=== PATIENT | male | born 1950 | race Caucasian/White ===

== ENCOUNTER → 2018-05-17 | Outpatient (CLI) | payer MEDICARE, OTHER | LOC: M RAD 08:18 | DX: J34.2 Deviated nasal septum (principal); J32.2 Chronic ethmoidal sinusitis; J32.1 Chronic frontal sinusitis | CPT/HCPCS: 70486 ==

== ENCOUNTER → 2022-02-26 | Outpatient (CLI) | payer MEDICARE, OTHER ==
[~2022-02-26] MED LIST: AMBI10TA OR; ATEN50TA2 OR; Aleve PO; CALC500T49 OR; CRES10TA32 OR; FOLI1TAB OR; GABA800T3 OR; ISOVUE-300 61% 50ML VIAL As Ordered ONE; LIDOCAINE 1% MDV 20ML VIAL As Ordered ONE; NORT50CA OR; TRIAMCINOLONE ACETONIDE SUSP 40 MG/ML VIAL (J3301) As Ordered ONE; VIT D 2000 PO; VITAMIN B COMPLEX WI OR; Vitamin D3 PO; oxycontin PO
== END ==
LOC: M RADPRO 11:24
PROVIDERS: ATTEND Orthopaedic Surgery
DX: M16.12 Unilateral primary osteoarthritis, left hip (principal)
CPT/HCPCS: 20610; 77002; J3301; Q9967

== ENCOUNTER 2022-04-26 11:59 | Inpatient (IN) | payer MEDICARE, OTHER ==
[~2022-04-26] VITALS: Ht 167.6 cm; Wt 78.0 kg
[~2022-04-26 11:59] MED LIST changes: -ISOVUE-300 61% 50ML VIAL As Ordered ONE; -LIDOCAINE 1% MDV 20ML VIAL As Ordered ONE; -TRIAMCINOLONE ACETONIDE SUSP 40 MG/ML VIAL (J3301) As Ordered ONE
[2022-04-26] MEDS ORDERED: GABAPENTIN 300 MG CAP PO PRN (13:00)
[2022-04-26] MEDS ORDERED: RAMELTEON 8 MG TAB (ROZEREM) PO PRN (13:00)
[2022-04-26] MEDS ORDERED: ONDANSETRON 4MG ORAL DISINTEGRATING TAB SL PRN (13:05)
[2022-04-26 18:00] VITALS: BP 164/89
[2022-04-26 20:00] VITALS: BP 148/88
[2022-04-26] MEDS ORDERED: MIRA3350 PO (20:40)
[2022-04-26] MEDS ORDERED: FLUO20CA22 PO (20:40)
[2022-04-26] MEDS ORDERED: LOSA50TA28 PO (20:40)
[2022-04-26] MEDS ORDERED: SENN-52 PO (20:40)
[2022-04-26] MEDS ORDERED: METO1TAB7 PO (20:40)
[2022-04-26] MEDS ORDERED: BISA10SU27 PR (20:40)
[2022-04-26] MEDS ORDERED: ASPI-428 PO (20:40)
[2022-04-26] MEDS ORDERED: LOVE1INJ SC (20:40)
[2022-04-26] MEDS ORDERED: ATOR40TA75 PO (20:40)
[2022-04-26] MEDS ORDERED: GABA-282 PO (20:40)
[2022-04-26] MEDS ORDERED: TRAZ-252 PO (20:40)
[2022-04-26] MEDS ORDERED: MELA3TAB30 PO (20:40)
[2022-04-26] MEDS ORDERED: ACET-910 PO (20:40)
[2022-04-26] MEDS ORDERED: ONDA4INJ4 IV (20:40)
[2022-04-26] MEDS ORDERED: HOME MED LIST COMPLETE! XX SCH (20:45)
[2022-04-26] MEDS ORDERED: traZODone 25MG PER 1/2 TABLET PO SCH (21:00)
[2022-04-26] MEDS: REMEDY PHYTOPLEX Z-GUARD PASTE 113GM TUBE (FROM STOREROOM PRODUCT) TOP SCH (21:50)
[2022-04-26] MEDS: SENNA 8.6 MG TAB (SENOKOT) PO SCH (21:54)
[2022-04-26] MEDS: DOCUSATE SODIUM 100MG CAPSULE PO SCH (21:54)
[2022-04-26] MEDS: ATORVASTATIN 20 MG TAB PO SCH (21:55)
[2022-04-26] MEDS: MECLIZINE 12.5 MG TAB PO SCH (23:11)
[2022-04-27 06:00] VITALS: BP 140/86
[2022-04-27] MEDS ORDERED: UNRESOLVED CLARIFICATION ENTRY XX SCH (07:00)
[2022-04-27 07:05] LABS: BASO # 0.1 10^3/uL (0.0-0.2); BASO % 1.1 % (0.0-1.0); EOS # 0.2 10^3/uL (0.0-0.5); EOS % 2.3 % (0.0-3.0); HEMATOCRIT 40.4 % (42.0-52.0); HEMOGLOBIN 13.7 g/dl (13.5-17.5); LYMPH # 2.3 10^3/uL (1.5-5.0); LYMPH % 31.5 % (24.0-44.0); MEAN CORPUSCULAR HEMOGLOBIN 30.5 pg (27.0-33.0); MEAN CORPUSCULAR HGB CONC 33.9 g/dl (32.0-36.5); MONO # 0.9 10^3/uL (0.0-0.8); MONO % 12.1 % (2.0-8.0); NEUTROPHILS # 3.8 10^3/uL (1.5-8.5); NEUTROPHILS % 52.2 % (36.0-66.0); PLATELET COUNT, AUTOMATED 247 10^3/uL (150-450); RED BLOOD COUNT 4.49 10^6/uL (4.30-6.10); WHITE BLOOD COUNT 7.3 10^3/uL (4.0-10.0)
[2022-04-27 07:41] LABS: ALBUMIN 3.2 GM/DL (3.2-5.2); ALT/SGPT 32 U/L (12-78); BILIRUBIN,TOTAL 0.7 MG/DL (0.2-1.0); BLOOD UREA NITROGEN 11 MG/DL (7-18); CALCIUM LEVEL 8.9 MG/DL (8.8-10.2); CARBON DIOXIDE LEVEL 28 MEQ/L (21-32); CHLORIDE LEVEL 110 MEQ/L (98-107); CREATININE FOR GFR 0.92 MG/DL (0.70-1.30); GLOMERULAR FILTRATION RATE > 60.0 (>42); GLUCOSE, FASTING 89 MG/DL (70-100); POTASSIUM SERUM 3.9 MEQ/L (3.5-5.1); SODIUM LEVEL 144 MEQ/L (136-145); TOTAL PROTEIN 5.9 GM/DL (6.4-8.2)
[2022-04-27] MEDS: MECLIZINE 12.5 MG TAB PO SCH ×3 (08:25→22:30)
[2022-04-27] MEDS: FLUoxetine 20MG CAP PO SCH (08:25)
[2022-04-27] MEDS: DOCUSATE SODIUM 100MG CAPSULE PO SCH ×2 (08:26→22:30)
[2022-04-27] MEDS: PANTOPRAZOLE 40MG TAB (PROTONIX) PO SCH (08:26)
[2022-04-27] MEDS: ASPIRIN ENTERIC 325 MG TAB PO SCH (08:26)
[2022-04-27] MEDS: LOSARTAN 25 MG TAB PO SCH (08:26)
[2022-04-27] MEDS: REMEDY PHYTOPLEX Z-GUARD PASTE 113GM TUBE (FROM STOREROOM PRODUCT) TOP SCH ×3 (08:27→21:00)
[2022-04-27] MEDS: METOPROLOL SUCC (TopROL XL) 50MG **XL** TAB PO SCH (08:27)
[2022-04-27] MEDS: HEPARIN SOD (PORCINE) 5000UNITS/ML 1ML VIAL/SYRINGE SC SCH ×2 (08:27→22:31)
[2022-04-27] MEDS: **hydrALAZINE HCL** 25 MG TAB PO SCH ×4 (10:04→22:30)
[2022-04-27] MEDS: amLODIPine 5 MG TAB PO SCH (10:04)
[2022-04-27 14:00] VITALS: BP 134/82
[2022-04-27 19:48] VITALS: BP 140/80
[2022-04-27] MEDS: RAMELTEON 8 MG TAB (ROZEREM) PO SCH (22:29)
[2022-04-27] MEDS: SENNA 8.6 MG TAB (SENOKOT) PO SCH (22:29)
[2022-04-27] MEDS: ATORVASTATIN 20 MG TAB PO SCH (22:30)
[2022-04-28] MEDS ORDERED: traZODone 25MG PER 1/2 TABLET PO PRN
[2022-04-28 05:02] VITALS: BP 140/88
[2022-04-28] MEDS: HEPARIN SOD (PORCINE) 5000UNITS/ML 1ML VIAL/SYRINGE SC SCH ×2 (08:41→21:33)
[2022-04-28] MEDS: METOPROLOL SUCC (TopROL XL) 50MG **XL** TAB PO SCH (08:42)
[2022-04-28] MEDS: ASPIRIN ENTERIC 325 MG TAB PO SCH (08:42)
[2022-04-28] MEDS: MECLIZINE 12.5 MG TAB PO SCH ×3 (08:42→21:32)
[2022-04-28] MEDS: FLUoxetine 20MG CAP PO SCH (08:42)
[2022-04-28] MEDS: amLODIPine 5 MG TAB PO SCH (08:42)
[2022-04-28] MEDS: PANTOPRAZOLE 40MG TAB (PROTONIX) PO SCH (08:42)
[2022-04-28] MEDS: DOCUSATE SODIUM 100MG CAPSULE PO SCH ×2 (08:42→21:00)
[2022-04-28] MEDS: LOSARTAN 25 MG TAB PO SCH (08:43)
[2022-04-28] MEDS: REMEDY PHYTOPLEX Z-GUARD PASTE 113GM TUBE (FROM STOREROOM PRODUCT) TOP SCH ×3 (08:43→21:00)
[2022-04-28] MEDS: **hydrALAZINE HCL** 25 MG TAB PO SCH ×4 (08:43→21:32)
[2022-04-28 11:38] LABS: BASO # 0.1 10^3/uL (0.0-0.2); BASO % 0.8 % (0.0-1.0); EOS # 0.2 10^3/uL (0.0-0.5); EOS % 2.3 % (0.0-3.0); HEMATOCRIT 41.4 % (42.0-52.0); HEMOGLOBIN 14.3 g/dl (13.5-17.5); LYMPH # 1.7 10^3/uL (1.5-5.0); LYMPH % 22.3 % (24.0-44.0); MEAN CORPUSCULAR HEMOGLOBIN 31.2 pg (27.0-33.0); MEAN CORPUSCULAR HGB CONC 34.5 g/dl (32.0-36.5); MEAN CORPUSCULAR VOLUME 90.4 fl (80.0-96.0); MONO # 0.8 10^3/uL (0.0-0.8); MONO % 10.4 % (2.0-8.0); NEUTROPHILS # 4.7 10^3/uL (1.5-8.5); NEUTROPHILS % 63.1 % (36.0-66.0); PLATELET COUNT, AUTOMATED 272 10^3/uL (150-450); RED BLOOD COUNT 4.58 10^6/uL (4.30-6.10); WHITE BLOOD COUNT 7.4 10^3/uL (4.0-10.0)
[2022-04-28 12:22] LABS: BLOOD UREA NITROGEN 10 MG/DL (7-18); CALCIUM LEVEL 8.9 MG/DL (8.8-10.2); CARBON DIOXIDE LEVEL 24 MEQ/L (21-32); CHLORIDE LEVEL 109 MEQ/L (98-107); CREATININE FOR GFR 0.83 MG/DL (0.70-1.30); GLOMERULAR FILTRATION RATE > 60.0 (>42); GLUCOSE, FASTING 89 MG/DL (70-100); POTASSIUM SERUM 4.1 MEQ/L (3.5-5.1); SODIUM LEVEL 140 MEQ/L (136-145)
[2022-04-28 14:00] VITALS: BP 124/76
[2022-04-28 15:22] VITALS: BP 124/76
[2022-04-28 20:00] VITALS: BP 148/80
[2022-04-28] MEDS: SENNA 8.6 MG TAB (SENOKOT) PO SCH (21:00)
[2022-04-28] MEDS: RAMELTEON 8 MG TAB (ROZEREM) PO SCH (21:32)
[2022-04-28] MEDS: ATORVASTATIN 20 MG TAB PO SCH (21:33)
[2022-04-29 05:26] VITALS: BP 148/82
[2022-04-29] MEDS: REMEDY PHYTOPLEX Z-GUARD PASTE 113GM TUBE (FROM STOREROOM PRODUCT) TOP SCH ×3 (09:00→20:40)
[2022-04-29] MEDS: MECLIZINE 12.5 MG TAB PO SCH ×3 (09:12→20:37)
[2022-04-29] MEDS: ASPIRIN ENTERIC 325 MG TAB PO SCH (09:12)
[2022-04-29] MEDS: DOCUSATE SODIUM 100MG CAPSULE PO SCH ×2 (09:12→20:37)
[2022-04-29] MEDS: amLODIPine 5 MG TAB PO SCH (09:12)
[2022-04-29] MEDS: **hydrALAZINE HCL** 25 MG TAB PO SCH ×4 (09:13→20:37)
[2022-04-29] MEDS: FLUoxetine 20MG CAP PO SCH (09:13)
[2022-04-29] MEDS: PANTOPRAZOLE 40MG TAB (PROTONIX) PO SCH (09:13)
[2022-04-29] MEDS: LOSARTAN 25 MG TAB PO SCH (09:13)
[2022-04-29] MEDS: HEPARIN SOD (PORCINE) 5000UNITS/ML 1ML VIAL/SYRINGE SC SCH ×2 (09:14→20:38)
[2022-04-29] MEDS: METOPROLOL SUCC (TopROL XL) 50MG **XL** TAB PO SCH (09:14)
[2022-04-29 14:00] VITALS: BP 144/78
[2022-04-29] MEDS: ACETAMINOPHEN TAB 650MG DOSE (2X325MG) PO PRN ×2 (18:01→20:38)
[2022-04-29 20:34] VITALS: BP 138/86
[2022-04-29] MEDS: SENNA 8.6 MG TAB (SENOKOT) PO SCH (20:36)
[2022-04-29] MEDS: ATORVASTATIN 20 MG TAB PO SCH (20:37)
[2022-04-29] MEDS: RAMELTEON 8 MG TAB (ROZEREM) PO SCH (22:04)
[2022-04-30 06:55] VITALS: BP 148/96
[2022-04-30] MEDS: **hydrALAZINE HCL** 25 MG TAB PO SCH ×4 (08:31→21:40)
[2022-04-30] MEDS: MECLIZINE 12.5 MG TAB PO SCH ×3 (08:31→21:39)
[2022-04-30] MEDS: LOSARTAN 25 MG TAB PO SCH (08:31)
[2022-04-30] MEDS: PANTOPRAZOLE 40MG TAB (PROTONIX) PO SCH (08:32)
[2022-04-30] MEDS: ASPIRIN ENTERIC 325 MG TAB PO SCH (08:32)
[2022-04-30] MEDS: FLUoxetine 20MG CAP PO SCH (08:32)
[2022-04-30] MEDS: amLODIPine 5 MG TAB PO SCH (08:32)
[2022-04-30] MEDS: METOPROLOL SUCC (TopROL XL) 50MG **XL** TAB PO SCH (08:33)
[2022-04-30] MEDS: DOCUSATE SODIUM 100MG CAPSULE PO SCH ×2 (08:33→21:39)
[2022-04-30] MEDS: REMEDY PHYTOPLEX Z-GUARD PASTE 113GM TUBE (FROM STOREROOM PRODUCT) TOP SCH ×3 (08:34→21:00)
[2022-04-30] MEDS: HEPARIN SOD (PORCINE) 5000UNITS/ML 1ML VIAL/SYRINGE SC SCH ×2 (08:34→21:39)
[2022-04-30 09:00] VITALS: BP 128/77
[2022-04-30 11:06] LABS: BASO # 0.1 10^3/uL (0.0-0.2); BASO % 0.9 % (0.0-1.0); EOS # 0.2 10^3/uL (0.0-0.5); EOS % 2.8 % (0.0-3.0); HEMATOCRIT 41.6 % (42.0-52.0); HEMOGLOBIN 14.1 g/dl (13.5-17.5); LYMPH # 1.7 10^3/uL (1.5-5.0); LYMPH % 26.5 % (24.0-44.0); MEAN CORPUSCULAR HEMOGLOBIN 30.9 pg (27.0-33.0); MEAN CORPUSCULAR HGB CONC 33.9 g/dl (32.0-36.5); MONO # 0.9 10^3/uL (0.0-0.8); MONO % 13.1 % (2.0-8.0); NEUTROPHILS # 3.6 10^3/uL (1.5-8.5); NEUTROPHILS % 55.6 % (36.0-66.0); PLATELET COUNT, AUTOMATED 281 10^3/uL (150-450); RED BLOOD COUNT 4.57 10^6/uL (4.30-6.10); WHITE BLOOD COUNT 6.5 10^3/uL (4.0-10.0)
[2022-04-30 11:28] LABS: BLOOD UREA NITROGEN 8 MG/DL (7-18); CALCIUM LEVEL 9.2 MG/DL (8.8-10.2); CARBON DIOXIDE LEVEL 26 MEQ/L (21-32); CHLORIDE LEVEL 112 MEQ/L (98-107); GLOMERULAR FILTRATION RATE > 60.0 (>42); GLUCOSE, FASTING 101 MG/DL (70-100); SODIUM LEVEL 143 MEQ/L (136-145)
[2022-04-30 12:56] VITALS: BP 128/81
[2022-04-30 14:00] VITALS: BP 110/77
[2022-04-30 16:25] VITALS: BP 149/81
[2022-04-30 19:45] VITALS: BP 122/70
[2022-04-30] MEDS: ATORVASTATIN 20 MG TAB PO SCH (21:39)
[2022-04-30] MEDS: SENNA 8.6 MG TAB (SENOKOT) PO SCH (21:40)
[2022-04-30] MEDS: traZODone 25MG PER 1/2 TABLET PO SCH (22:03)
[2022-04-30] MEDS: RAMELTEON 8 MG TAB (ROZEREM) PO SCH (22:03)
[2022-05-01 05:49] VITALS: BP 130/80
[2022-05-01] MEDS: MECLIZINE 12.5 MG TAB PO SCH ×3 (08:18→22:15)
[2022-05-01] MEDS: DOCUSATE SODIUM 100MG CAPSULE PO SCH ×2 (08:18→22:15)
[2022-05-01] MEDS: FLUoxetine 20MG CAP PO SCH (08:18)
[2022-05-01] MEDS: LOSARTAN 25 MG TAB PO SCH (08:18)
[2022-05-01] MEDS: ASPIRIN ENTERIC 325 MG TAB PO SCH (08:18)
[2022-05-01] MEDS: PANTOPRAZOLE 40MG TAB (PROTONIX) PO SCH (08:19)
[2022-05-01] MEDS: amLODIPine 5 MG TAB PO SCH (08:19)
[2022-05-01] MEDS: **hydrALAZINE HCL** 25 MG TAB PO SCH ×4 (08:19→21:00)
[2022-05-01] MEDS: REMEDY PHYTOPLEX Z-GUARD PASTE 113GM TUBE (FROM STOREROOM PRODUCT) TOP SCH ×3 (08:19→21:00)
[2022-05-01] MEDS: HEPARIN SOD (PORCINE) 5000UNITS/ML 1ML VIAL/SYRINGE SC SCH ×2 (08:19→22:16)
[2022-05-01] MEDS: METOPROLOL SUCC (TopROL XL) 50MG **XL** TAB PO SCH (08:19)
[2022-05-01 20:11] VITALS: BP 124/84
[2022-05-01] MEDS: traZODone 25MG PER 1/2 TABLET PO SCH (22:15)
[2022-05-01] MEDS: RAMELTEON 8 MG TAB (ROZEREM) PO SCH (22:15)
[2022-05-01] MEDS: SENNA 8.6 MG TAB (SENOKOT) PO SCH (22:15)
[2022-05-01] MEDS: ATORVASTATIN 20 MG TAB PO SCH (22:16)
[2022-05-02 06:00] VITALS: BP 164/83
[2022-05-02] MEDS: REMEDY PHYTOPLEX Z-GUARD PASTE 113GM TUBE (FROM STOREROOM PRODUCT) TOP SCH ×3 (09:00→21:00)
[2022-05-02] MEDS: FLUoxetine 20MG CAP PO SCH (09:50)
[2022-05-02] MEDS: MECLIZINE 12.5 MG TAB PO SCH ×3 (09:50→21:40)
[2022-05-02] MEDS: LOSARTAN 25 MG TAB PO SCH (09:51)
[2022-05-02] MEDS: amLODIPine 5 MG TAB PO SCH (09:51)
[2022-05-02] MEDS: DOCUSATE SODIUM 100MG CAPSULE PO SCH ×2 (09:51→21:40)
[2022-05-02] MEDS: PANTOPRAZOLE 40MG TAB (PROTONIX) PO SCH (09:51)
[2022-05-02] MEDS: **hydrALAZINE HCL** 25 MG TAB PO SCH ×4 (09:51→21:40)
[2022-05-02] MEDS: ASPIRIN ENTERIC 325 MG TAB PO SCH (09:51)
[2022-05-02] MEDS: METOPROLOL SUCC (TopROL XL) 50MG **XL** TAB PO SCH (09:51)
[2022-05-02] MEDS: HEPARIN SOD (PORCINE) 5000UNITS/ML 1ML VIAL/SYRINGE SC SCH ×2 (09:52→21:40)
[2022-05-02 14:00] VITALS: BP 115/65
[2022-05-02 20:15] VITALS: BP 143/76
[2022-05-02] MEDS: ATORVASTATIN 20 MG TAB PO SCH (21:40)
[2022-05-02] MEDS: SENNA 8.6 MG TAB (SENOKOT) PO SCH (21:40)
[2022-05-02] MEDS: RAMELTEON 8 MG TAB (ROZEREM) PO SCH (22:35)
[2022-05-02] MEDS: traZODone 25MG PER 1/2 TABLET PO SCH (22:35)
[2022-05-03 06:10] VITALS: BP 126/75
[2022-05-03 06:48] LABS: BASO # 0.1 10^3/uL (0.0-0.2); EOS # 0.4 10^3/uL (0.0-0.5); EOS % 4.9 % (0.0-3.0); HEMATOCRIT 41.9 % (42.0-52.0); HEMOGLOBIN 14.2 g/dl (13.5-17.5); LYMPH % 26.9 % (24.0-44.0); MEAN CORPUSCULAR HEMOGLOBIN 31.3 pg (27.0-33.0); MEAN CORPUSCULAR HGB CONC 33.9 g/dl (32.0-36.5); MEAN CORPUSCULAR VOLUME 92.3 fl (80.0-96.0); MONO # 0.7 10^3/uL (0.0-0.8); MONO % 9.8 % (2.0-8.0); NEUTROPHILS # 4.1 10^3/uL (1.5-8.5); NEUTROPHILS % 56.3 % (36.0-66.0); PLATELET COUNT, AUTOMATED 235 10^3/uL (150-450); RED BLOOD COUNT 4.54 10^6/uL (4.30-6.10); WHITE BLOOD COUNT 7.3 10^3/uL (4.0-10.0)
[2022-05-03 07:13] LABS: BLOOD UREA NITROGEN 10 MG/DL (7-18); CALCIUM LEVEL 8.5 MG/DL (8.8-10.2); CARBON DIOXIDE LEVEL 29 MEQ/L (21-32); CHLORIDE LEVEL 108 MEQ/L (98-107); CREATININE FOR GFR 0.92 MG/DL (0.70-1.30); GLOMERULAR FILTRATION RATE > 60.0 (>42); GLUCOSE, FASTING 86 MG/DL (70-100); POTASSIUM SERUM 4.2 MEQ/L (3.5-5.1); SODIUM LEVEL 141 MEQ/L (136-145)
[2022-05-03] MEDS: MECLIZINE 12.5 MG TAB PO SCH ×3 (08:07→21:44)
[2022-05-03] MEDS: DOCUSATE SODIUM 100MG CAPSULE PO SCH ×2 (08:08→21:44)
[2022-05-03] MEDS: **hydrALAZINE HCL** 25 MG TAB PO SCH ×4 (08:08→21:00)
[2022-05-03] MEDS: LOSARTAN 25 MG TAB PO SCH (08:09)
[2022-05-03] MEDS: PANTOPRAZOLE 40MG TAB (PROTONIX) PO SCH (08:09)
[2022-05-03] MEDS: amLODIPine 5 MG TAB PO SCH (08:09)
[2022-05-03] MEDS: ASPIRIN ENTERIC 325 MG TAB PO SCH (08:09)
[2022-05-03] MEDS: FLUoxetine 20MG CAP PO SCH (08:10)
[2022-05-03] MEDS: METOPROLOL SUCC (TopROL XL) 50MG **XL** TAB PO SCH (08:10)
[2022-05-03] MEDS: HEPARIN SOD (PORCINE) 5000UNITS/ML 1ML VIAL/SYRINGE SC SCH ×2 (08:11→21:45)
[2022-05-03] MEDS: REMEDY PHYTOPLEX Z-GUARD PASTE 113GM TUBE (FROM STOREROOM PRODUCT) TOP SCH ×3 (08:11→21:00)
[2022-05-03 12:34] VITALS: BP 111/63
[2022-05-03 14:00] VITALS: BP 110/67
[2022-05-03 20:00] VITALS: BP 120/71
[2022-05-03] MEDS: traZODone 25MG PER 1/2 TABLET PO SCH (21:43)
[2022-05-03] MEDS: RAMELTEON 8 MG TAB (ROZEREM) PO SCH (21:43)
[2022-05-03] MEDS: ATORVASTATIN 20 MG TAB PO SCH (21:44)
[2022-05-03] MEDS: SENNA 8.6 MG TAB (SENOKOT) PO SCH (21:44)
[2022-05-04 05:27] VITALS: BP 138/82
[2022-05-04] MEDS: REMEDY PHYTOPLEX Z-GUARD PASTE 113GM TUBE (FROM STOREROOM PRODUCT) TOP SCH ×3 (08:07→20:16)
[2022-05-04] MEDS: FLUoxetine 20MG CAP PO SCH (08:13)
[2022-05-04] MEDS: LOSARTAN 25 MG TAB PO SCH (08:14)
[2022-05-04] MEDS: HEPARIN SOD (PORCINE) 5000UNITS/ML 1ML VIAL/SYRINGE SC SCH ×2 (08:14→20:15)
[2022-05-04] MEDS: DOCUSATE SODIUM 100MG CAPSULE PO SCH ×2 (08:14→20:15)
[2022-05-04] MEDS: PANTOPRAZOLE 40MG TAB (PROTONIX) PO SCH (08:14)
[2022-05-04] MEDS: ASPIRIN ENTERIC 325 MG TAB PO SCH (08:14)
[2022-05-04] MEDS: amLODIPine 5 MG TAB PO SCH (08:14)
[2022-05-04] MEDS: MECLIZINE 12.5 MG TAB PO SCH ×3 (08:14→20:15)
[2022-05-04] MEDS: METOPROLOL SUCC (TopROL XL) 50MG **XL** TAB PO SCH (08:14)
[2022-05-04] MEDS: **hydrALAZINE HCL** 25 MG TAB PO SCH ×4 (08:15→20:15)
[2022-05-04 14:00] VITALS: BP 128/72
[2022-05-04 20:00] VITALS: BP 124/72
[2022-05-04] MEDS: SENNA 8.6 MG TAB (SENOKOT) PO SCH (20:15)
[2022-05-04] MEDS: ATORVASTATIN 20 MG TAB PO SCH (20:15)
[2022-05-04] MEDS: RAMELTEON 8 MG TAB (ROZEREM) PO SCH (22:17)
[2022-05-04] MEDS: traZODone 25MG PER 1/2 TABLET PO SCH (22:17)
[2022-05-05 06:00] VITALS: BP 133/72
[2022-05-05 07:01] LABS: BASO # 0.1 10^3/uL (0.0-0.2); BASO % 1.1 % (0.0-1.0); EOS # 0.4 10^3/uL (0.0-0.5); EOS % 5.9 % (0.0-3.0); HEMATOCRIT 39.9 % (42.0-52.0); HEMOGLOBIN 13.4 g/dl (13.5-17.5); LYMPH # 1.6 10^3/uL (1.5-5.0); LYMPH % 25.3 % (24.0-44.0); MEAN CORPUSCULAR HEMOGLOBIN 30.5 pg (27.0-33.0); MEAN CORPUSCULAR HGB CONC 33.6 g/dl (32.0-36.5); MEAN CORPUSCULAR VOLUME 90.9 fl (80.0-96.0); MONO # 0.8 10^3/uL (0.0-0.8); MONO % 12.7 % (2.0-8.0); NEUTROPHILS # 3.5 10^3/uL (1.5-8.5); NEUTROPHILS % 53.9 % (36.0-66.0); PLATELET COUNT, AUTOMATED 220 10^3/uL (150-450); RED BLOOD COUNT 4.39 10^6/uL (4.30-6.10); WHITE BLOOD COUNT 6.4 10^3/uL (4.0-10.0)
[2022-05-05 07:18] LABS: BLOOD UREA NITROGEN 11 MG/DL (7-18); CALCIUM LEVEL 8.8 MG/DL (8.8-10.2); CARBON DIOXIDE LEVEL 29 MEQ/L (21-32); CHLORIDE LEVEL 108 MEQ/L (98-107); CREATININE FOR GFR 0.89 MG/DL (0.70-1.30); GLOMERULAR FILTRATION RATE > 60.0 (>42); GLUCOSE, FASTING 93 MG/DL (70-100); POTASSIUM SERUM 4.2 MEQ/L (3.5-5.1); SODIUM LEVEL 140 MEQ/L (136-145)
[2022-05-05] MEDS: REMEDY PHYTOPLEX Z-GUARD PASTE 113GM TUBE (FROM STOREROOM PRODUCT) TOP SCH ×3 (09:00→21:00)
[2022-05-05] MEDS: DOCUSATE SODIUM 100MG CAPSULE PO SCH ×2 (09:12→22:02)
[2022-05-05] MEDS: **hydrALAZINE HCL** 25 MG TAB PO SCH ×4 (09:12→21:00)
[2022-05-05] MEDS: PANTOPRAZOLE 40MG TAB (PROTONIX) PO SCH (09:12)
[2022-05-05] MEDS: amLODIPine 5 MG TAB PO SCH (09:12)
[2022-05-05] MEDS: ASPIRIN ENTERIC 325 MG TAB PO SCH (09:12)
[2022-05-05] MEDS: FLUoxetine 20MG CAP PO SCH (09:12)
[2022-05-05] MEDS: MECLIZINE 12.5 MG TAB PO SCH ×3 (09:12→22:04)
[2022-05-05] MEDS: HEPARIN SOD (PORCINE) 5000UNITS/ML 1ML VIAL/SYRINGE SC SCH ×2 (09:13→22:02)
[2022-05-05] MEDS: METOPROLOL SUCC (TopROL XL) 50MG **XL** TAB PO SCH (09:13)
[2022-05-05] MEDS: LOSARTAN 25 MG TAB PO SCH (09:13)
[2022-05-05 14:00] VITALS: BP 140/78
[2022-05-05 19:56] VITALS: BP 128/78
[2022-05-05] MEDS: RAMELTEON 8 MG TAB (ROZEREM) PO SCH (22:02)
[2022-05-05] MEDS: traZODone 25MG PER 1/2 TABLET PO SCH (22:02)
[2022-05-05] MEDS: ATORVASTATIN 20 MG TAB PO SCH (22:03)
[2022-05-05] MEDS: SENNA 8.6 MG TAB (SENOKOT) PO SCH (22:03)
[2022-05-06 06:00] VITALS: BP 121/77
[2022-05-06] MEDS: REMEDY PHYTOPLEX Z-GUARD PASTE 113GM TUBE (FROM STOREROOM PRODUCT) TOP SCH ×3 (09:00→22:02)
[2022-05-06] MEDS: METOPROLOL SUCC (TopROL XL) 50MG **XL** TAB PO SCH (09:22)
[2022-05-06] MEDS: FLUoxetine 20MG CAP PO SCH (09:22)
[2022-05-06] MEDS: ASPIRIN ENTERIC 325 MG TAB PO SCH (09:22)
[2022-05-06] MEDS: PANTOPRAZOLE 40MG TAB (PROTONIX) PO SCH (09:22)
[2022-05-06] MEDS: DOCUSATE SODIUM 100MG CAPSULE PO SCH ×2 (09:22→22:03)
[2022-05-06] MEDS: MECLIZINE 12.5 MG TAB PO SCH ×3 (09:22→22:03)
[2022-05-06] MEDS: amLODIPine 5 MG TAB PO SCH (09:23)
[2022-05-06] MEDS: HEPARIN SOD (PORCINE) 5000UNITS/ML 1ML VIAL/SYRINGE SC SCH ×2 (09:23→22:05)
[2022-05-06] MEDS: **hydrALAZINE HCL** 25 MG TAB PO SCH ×4 (09:23→22:04)
[2022-05-06] MEDS: LOSARTAN 25 MG TAB PO SCH (09:24)
[2022-05-06 14:00] VITALS: BP 122/70
[2022-05-06 19:58] VITALS: BP 128/80
[2022-05-06] MEDS: traZODone 25MG PER 1/2 TABLET PO SCH (22:03)
[2022-05-06] MEDS: RAMELTEON 8 MG TAB (ROZEREM) PO SCH (22:03)
[2022-05-06] MEDS: ATORVASTATIN 20 MG TAB PO SCH (22:04)
[2022-05-06] MEDS: SENNA 8.6 MG TAB (SENOKOT) PO SCH (22:04)
[2022-05-07 05:30] VITALS: BP 132/84
[2022-05-07 07:58] LABS: BASO # 0.1 10^3/uL (0.0-0.2); BASO % 0.9 % (0.0-1.0); EOS # 0.4 10^3/uL (0.0-0.5); EOS % 5.3 % (0.0-3.0); HEMATOCRIT 40.9 % (42.0-52.0); HEMOGLOBIN 13.7 g/dl (13.5-17.5); LYMPH # 1.8 10^3/uL (1.5-5.0); MEAN CORPUSCULAR HEMOGLOBIN 30.6 pg (27.0-33.0); MEAN CORPUSCULAR HGB CONC 33.5 g/dl (32.0-36.5); MEAN CORPUSCULAR VOLUME 91.5 fl (80.0-96.0); MONO # 0.7 10^3/uL (0.0-0.8); MONO % 11.3 % (2.0-8.0); NEUTROPHILS # 3.5 10^3/uL (1.5-8.5); NEUTROPHILS % 53.7 % (36.0-66.0); PLATELET COUNT, AUTOMATED 234 10^3/uL (150-450); RED BLOOD COUNT 4.47 10^6/uL (4.30-6.10); WHITE BLOOD COUNT 6.6 10^3/uL (4.0-10.0)
[2022-05-07 08:20] LABS: BLOOD UREA NITROGEN 10 MG/DL (7-18); CALCIUM LEVEL 8.8 MG/DL (8.8-10.2); CARBON DIOXIDE LEVEL 26 MEQ/L (21-32); CHLORIDE LEVEL 109 MEQ/L (98-107); CREATININE FOR GFR 0.89 MG/DL (0.70-1.30); GLOMERULAR FILTRATION RATE > 60.0 (>42); GLUCOSE, FASTING 94 MG/DL (70-100); POTASSIUM SERUM 4.4 MEQ/L (3.5-5.1); SODIUM LEVEL 143 MEQ/L (136-145)
[2022-05-07] MEDS: FLUoxetine 20MG CAP PO SCH (08:54)
[2022-05-07] MEDS: amLODIPine 5 MG TAB PO SCH (08:54)
[2022-05-07] MEDS: PANTOPRAZOLE 40MG TAB (PROTONIX) PO SCH (08:54)
[2022-05-07] MEDS: HEPARIN SOD (PORCINE) 5000UNITS/ML 1ML VIAL/SYRINGE SC SCH ×2 (08:54→20:45)
[2022-05-07] MEDS: DOCUSATE SODIUM 100MG CAPSULE PO SCH ×2 (08:54→20:45)
[2022-05-07] MEDS: ASPIRIN ENTERIC 325 MG TAB PO SCH (08:55)
[2022-05-07] MEDS: METOPROLOL SUCC (TopROL XL) 50MG **XL** TAB PO SCH (08:55)
[2022-05-07] MEDS: LOSARTAN 25 MG TAB PO SCH (08:55)
[2022-05-07] MEDS: MECLIZINE 12.5 MG TAB PO SCH (08:56)
[2022-05-07] MEDS: **hydrALAZINE HCL** 25 MG TAB PO SCH ×4 (08:56→20:05)
[2022-05-07] MEDS: REMEDY PHYTOPLEX Z-GUARD PASTE 113GM TUBE (FROM STOREROOM PRODUCT) TOP SCH ×3 (08:57→20:45)
[2022-05-07 14:00] VITALS: BP 106/64
[2022-05-07 20:00] VITALS: BP 111/61
[2022-05-07] MEDS: SENNA 8.6 MG TAB (SENOKOT) PO SCH (20:45)
[2022-05-07] MEDS: ATORVASTATIN 20 MG TAB PO SCH (20:45)
[2022-05-07] MEDS: traZODone 25MG PER 1/2 TABLET PO SCH (22:15)
[2022-05-07] MEDS: RAMELTEON 8 MG TAB (ROZEREM) PO SCH (22:15)
[2022-05-08 06:00] VITALS: BP 124/71
[2022-05-08] MEDS: DOCUSATE SODIUM 100MG CAPSULE PO SCH ×2 (08:26→21:00)
[2022-05-08] MEDS: **hydrALAZINE HCL** 25 MG TAB PO SCH ×4 (08:26→21:00)
[2022-05-08] MEDS: LOSARTAN 25 MG TAB PO SCH (08:26)
[2022-05-08] MEDS: amLODIPine 5 MG TAB PO SCH (08:27)
[2022-05-08] MEDS: PANTOPRAZOLE 40MG TAB (PROTONIX) PO SCH (08:27)
[2022-05-08] MEDS: ASPIRIN ENTERIC 325 MG TAB PO SCH (08:27)
[2022-05-08] MEDS: FLUoxetine 20MG CAP PO SCH (08:27)
[2022-05-08] MEDS: METOPROLOL SUCC (TopROL XL) 50MG **XL** TAB PO SCH (08:27)
[2022-05-08] MEDS: REMEDY PHYTOPLEX Z-GUARD PASTE 113GM TUBE (FROM STOREROOM PRODUCT) TOP SCH ×3 (08:28→21:00)
[2022-05-08] MEDS: HEPARIN SOD (PORCINE) 5000UNITS/ML 1ML VIAL/SYRINGE SC SCH ×2 (08:28→21:49)
[2022-05-08 12:30] VITALS: BP 126/84
[2022-05-08 14:00] VITALS: BP 113/71
[2022-05-08 16:35] VITALS: BP 113/68
[2022-05-08 20:00] VITALS: BP 133/75
[2022-05-08] MEDS: SENNA 8.6 MG TAB (SENOKOT) PO SCH (21:00)
[2022-05-08] MEDS: ATORVASTATIN 20 MG TAB PO SCH (21:48)
[2022-05-08] MEDS: RAMELTEON 8 MG TAB (ROZEREM) PO SCH (22:31)
[2022-05-08] MEDS: traZODone 25MG PER 1/2 TABLET PO SCH (22:31)
[2022-05-09 06:00] VITALS: BP 129/74
[2022-05-09] MEDS: ASPIRIN ENTERIC 325 MG TAB PO SCH (07:42)
[2022-05-09] MEDS: DOCUSATE SODIUM 100MG CAPSULE PO SCH ×2 (07:42→20:16)
[2022-05-09] MEDS: LOSARTAN 25 MG TAB PO SCH (07:42)
[2022-05-09] MEDS: amLODIPine 5 MG TAB PO SCH (07:43)
[2022-05-09] MEDS: FLUoxetine 20MG CAP PO SCH (07:43)
[2022-05-09] MEDS: HEPARIN SOD (PORCINE) 5000UNITS/ML 1ML VIAL/SYRINGE SC SCH ×2 (07:43→20:17)
[2022-05-09] MEDS: METOPROLOL SUCC (TopROL XL) 50MG **XL** TAB PO SCH (07:43)
[2022-05-09] MEDS: PANTOPRAZOLE 40MG TAB (PROTONIX) PO SCH (07:43)
[2022-05-09] MEDS: REMEDY PHYTOPLEX Z-GUARD PASTE 113GM TUBE (FROM STOREROOM PRODUCT) TOP SCH ×3 (07:44→20:17)
[2022-05-09] MEDS: **hydrALAZINE HCL** 25 MG TAB PO SCH ×4 (07:48→20:17)
[2022-05-09 14:00] VITALS: BP 117/74
[2022-05-09 19:30] VITALS: BP 133/79
[2022-05-09] MEDS: ATORVASTATIN 20 MG TAB PO SCH (20:16)
[2022-05-09] MEDS: SENNA 8.6 MG TAB (SENOKOT) PO SCH (20:17)
[2022-05-09] MEDS: RAMELTEON 8 MG TAB (ROZEREM) PO SCH (22:39)
[2022-05-09] MEDS: traZODone 25MG PER 1/2 TABLET PO SCH (22:39)
[2022-05-10 06:00] VITALS: BP 131/72
[2022-05-10 06:53] LABS: BASO # 0.1 10^3/uL (0.0-0.2); BASO % 0.8 % (0.0-1.0); EOS # 0.3 10^3/uL (0.0-0.5); EOS % 4.5 % (0.0-3.0); HEMATOCRIT 38.8 % (42.0-52.0); HEMOGLOBIN 13.4 g/dl (13.5-17.5); LYMPH # 1.8 10^3/uL (1.5-5.0); LYMPH % 29.6 % (24.0-44.0); MEAN CORPUSCULAR HEMOGLOBIN 30.8 pg (27.0-33.0); MEAN CORPUSCULAR HGB CONC 34.5 g/dl (32.0-36.5); MEAN CORPUSCULAR VOLUME 89.2 fl (80.0-96.0); MONO # 0.6 10^3/uL (0.0-0.8); MONO % 10.4 % (2.0-8.0); NEUTROPHILS # 3.2 10^3/uL (1.5-8.5); NEUTROPHILS % 53.7 % (36.0-66.0); PLATELET COUNT, AUTOMATED 210 10^3/uL (150-450); RED BLOOD COUNT 4.35 10^6/uL (4.30-6.10)
[2022-05-10 07:23] LABS: BLOOD UREA NITROGEN 13 MG/DL (7-18); CALCIUM LEVEL 8.8 MG/DL (8.8-10.2); CARBON DIOXIDE LEVEL 27 MEQ/L (21-32); CHLORIDE LEVEL 108 MEQ/L (98-107); CREATININE FOR GFR 0.87 MG/DL (0.70-1.30); GLOMERULAR FILTRATION RATE > 60.0 (>42); GLUCOSE, FASTING 91 MG/DL (70-100); POTASSIUM SERUM 3.9 MEQ/L (3.5-5.1); SODIUM LEVEL 140 MEQ/L (136-145)
[2022-05-10] MEDS: PANTOPRAZOLE 40MG TAB (PROTONIX) PO SCH (08:43)
[2022-05-10] MEDS: HEPARIN SOD (PORCINE) 5000UNITS/ML 1ML VIAL/SYRINGE SC SCH ×2 (08:43→21:30)
[2022-05-10] MEDS: ASPIRIN ENTERIC 325 MG TAB PO SCH (08:43)
[2022-05-10] MEDS: FLUoxetine 20MG CAP PO SCH (08:43)
[2022-05-10] MEDS: DOCUSATE SODIUM 100MG CAPSULE PO SCH ×2 (08:43→21:30)
[2022-05-10] MEDS: METOPROLOL SUCC (TopROL XL) 50MG **XL** TAB PO SCH (08:44)
[2022-05-10] MEDS: **hydrALAZINE HCL** 25 MG TAB PO SCH ×4 (08:44→21:00)
[2022-05-10] MEDS: LOSARTAN 25 MG TAB PO SCH (08:44)
[2022-05-10] MEDS: amLODIPine 5 MG TAB PO SCH (08:44)
[2022-05-10] MEDS: REMEDY PHYTOPLEX Z-GUARD PASTE 113GM TUBE (FROM STOREROOM PRODUCT) TOP SCH ×3 (08:45→21:00)
[2022-05-10 14:00] VITALS: BP 107/66
[2022-05-10 20:00] VITALS: BP 120/70
[2022-05-10] MEDS: ATORVASTATIN 20 MG TAB PO SCH (21:30)
[2022-05-10] MEDS: SENNA 8.6 MG TAB (SENOKOT) PO SCH (21:30)
[2022-05-10] MEDS: traZODone 25MG PER 1/2 TABLET PO SCH (22:36)
[2022-05-10] MEDS: RAMELTEON 8 MG TAB (ROZEREM) PO SCH (22:36)
[2022-05-11 05:45] VITALS: BP 138/79
[2022-05-11] MEDS: **hydrALAZINE HCL** 25 MG TAB PO SCH ×4 (09:00→21:00)
[2022-05-11] MEDS: REMEDY PHYTOPLEX Z-GUARD PASTE 113GM TUBE (FROM STOREROOM PRODUCT) TOP SCH ×3 (09:00→21:00)
[2022-05-11] MEDS: DOCUSATE SODIUM 100MG CAPSULE PO SCH ×2 (09:20→21:19)
[2022-05-11] MEDS: PANTOPRAZOLE 40MG TAB (PROTONIX) PO SCH (09:20)
[2022-05-11] MEDS: LOSARTAN 25 MG TAB PO SCH (09:20)
[2022-05-11] MEDS: FLUoxetine 20MG CAP PO SCH (09:20)
[2022-05-11] MEDS: ASPIRIN ENTERIC 325 MG TAB PO SCH (09:20)
[2022-05-11] MEDS: METOPROLOL SUCC (TopROL XL) 50MG **XL** TAB PO SCH (09:21)
[2022-05-11] MEDS: HEPARIN SOD (PORCINE) 5000UNITS/ML 1ML VIAL/SYRINGE SC SCH ×2 (09:21→21:19)
[2022-05-11] MEDS: amLODIPine 5 MG TAB PO SCH (09:21)
[2022-05-11 14:00] VITALS: BP 122/74
[2022-05-11 20:00] VITALS: BP 134/77
[2022-05-11] MEDS: ATORVASTATIN 20 MG TAB PO SCH (21:19)
[2022-05-11] MEDS: SENNA 8.6 MG TAB (SENOKOT) PO SCH (21:19)
[2022-05-11] MEDS: RAMELTEON 8 MG TAB (ROZEREM) PO SCH (22:38)
[2022-05-11] MEDS: traZODone 25MG PER 1/2 TABLET PO SCH (22:38)
[2022-05-12 06:00] VITALS: BP 121/71
[2022-05-12] MEDS: REMEDY PHYTOPLEX Z-GUARD PASTE 113GM TUBE (FROM STOREROOM PRODUCT) TOP SCH ×3 (09:00→20:09)
[2022-05-12] MEDS: **hydrALAZINE HCL** 25 MG TAB PO SCH ×4 (09:00→20:09)
[2022-05-12] MEDS ORDERED: METO1TAB7 PO (09:52)
[2022-05-12] MEDS ORDERED: FLUO20CA22 PO (09:52)
[2022-05-12] MEDS ORDERED: ATOR40TA75 PO (09:52)
[2022-05-12] MEDS ORDERED: TRAZ-252 PO (09:52)
[2022-05-12] MEDS ORDERED: PANT40TA29 PO (09:52)
[2022-05-12] MEDS ORDERED: HYDR25TA PO (09:52)
[2022-05-12] MEDS ORDERED: COZA1TAB PO (09:52)
[2022-05-12] MEDS ORDERED: ASPI32ECTA PO (09:52)
[2022-05-12] MEDS ORDERED: AMLO1TAB24 PO (09:52)
[2022-05-12] MEDS: ASPIRIN ENTERIC 325 MG TAB PO SCH (10:38)
[2022-05-12] MEDS: FLUoxetine 20MG CAP PO SCH (10:38)
[2022-05-12] MEDS: PANTOPRAZOLE 40MG TAB (PROTONIX) PO SCH (10:38)
[2022-05-12] MEDS: DOCUSATE SODIUM 100MG CAPSULE PO SCH ×2 (10:38→20:12)
[2022-05-12] MEDS: LOSARTAN 25 MG TAB PO SCH (10:39)
[2022-05-12] MEDS: amLODIPine 5 MG TAB PO SCH (10:40)
[2022-05-12] MEDS: METOPROLOL SUCC (TopROL XL) 50MG **XL** TAB PO SCH (10:40)
[2022-05-12] MEDS: HEPARIN SOD (PORCINE) 5000UNITS/ML 1ML VIAL/SYRINGE SC SCH ×2 (10:41→20:12)
[2022-05-12 14:00] VITALS: BP 132/74
[2022-05-12 20:00] VITALS: BP 113/65
[2022-05-12] MEDS: SENNA 8.6 MG TAB (SENOKOT) PO SCH (20:12)
[2022-05-12] MEDS: ATORVASTATIN 20 MG TAB PO SCH (20:12)
[2022-05-12] MEDS: traZODone 25MG PER 1/2 TABLET PO SCH (22:20)
[2022-05-12] MEDS: RAMELTEON 8 MG TAB (ROZEREM) PO SCH (22:20)
[2022-05-13 05:30] VITALS: BP 113/66
[2022-05-13] MEDS: PANTOPRAZOLE 40MG TAB (PROTONIX) PO SCH (08:53)
[2022-05-13] MEDS: FLUoxetine 20MG CAP PO SCH (08:53)
[2022-05-13] MEDS: HEPARIN SOD (PORCINE) 5000UNITS/ML 1ML VIAL/SYRINGE SC SCH ×2 (08:53→20:45)
[2022-05-13] MEDS: ASPIRIN ENTERIC 325 MG TAB PO SCH (08:53)
[2022-05-13] MEDS: DOCUSATE SODIUM 100MG CAPSULE PO SCH ×2 (08:53→20:45)
[2022-05-13] MEDS: **hydrALAZINE HCL** 25 MG TAB PO SCH ×5 (08:53→20:47)
[2022-05-13] MEDS: LOSARTAN 25 MG TAB PO SCH (08:54)
[2022-05-13] MEDS: METOPROLOL SUCC (TopROL XL) 50MG **XL** TAB PO SCH (08:54)
[2022-05-13] MEDS: amLODIPine 5 MG TAB PO SCH (08:54)
[2022-05-13] MEDS: REMEDY PHYTOPLEX Z-GUARD PASTE 113GM TUBE (FROM STOREROOM PRODUCT) TOP SCH ×3 (08:54→20:46)
[2022-05-13 14:00] VITALS: BP 125/78
[2022-05-13 20:00] VITALS: BP 124/69
[2022-05-13] MEDS: ATORVASTATIN 20 MG TAB PO SCH (20:45)
[2022-05-13] MEDS: SENNA 8.6 MG TAB (SENOKOT) PO SCH (20:46)
[2022-05-13] MEDS: RAMELTEON 8 MG TAB (ROZEREM) PO SCH (22:30)
[2022-05-13] MEDS: traZODone 25MG PER 1/2 TABLET PO SCH (22:30)
[2022-05-14 06:00] VITALS: BP 136/72
[2022-05-14] MEDS: REMEDY PHYTOPLEX Z-GUARD PASTE 113GM TUBE (FROM STOREROOM PRODUCT) TOP SCH ×3 (09:00→21:45)
[2022-05-14] MEDS: FLUoxetine 20MG CAP PO SCH (09:26)
[2022-05-14] MEDS: ASPIRIN ENTERIC 325 MG TAB PO SCH (09:26)
[2022-05-14] MEDS: DOCUSATE SODIUM 100MG CAPSULE PO SCH ×2 (09:26→21:43)
[2022-05-14] MEDS: PANTOPRAZOLE 40MG TAB (PROTONIX) PO SCH (09:26)
[2022-05-14] MEDS: HEPARIN SOD (PORCINE) 5000UNITS/ML 1ML VIAL/SYRINGE SC SCH ×2 (09:26→21:44)
[2022-05-14] MEDS: amLODIPine 5 MG TAB PO SCH (09:26)
[2022-05-14] MEDS: METOPROLOL SUCC (TopROL XL) 50MG **XL** TAB PO SCH (09:27)
[2022-05-14] MEDS: **hydrALAZINE HCL** 25 MG TAB PO SCH ×4 (09:27→21:00)
[2022-05-14] MEDS: LOSARTAN 25 MG TAB PO SCH (09:27)
[2022-05-14 15:00] VITALS: BP 129/74
[2022-05-14 19:52] VITALS: BP 140/76
[2022-05-14] MEDS: ATORVASTATIN 20 MG TAB PO SCH (21:43)
[2022-05-14] MEDS: SENNA 8.6 MG TAB (SENOKOT) PO SCH (21:43)
[2022-05-14] MEDS: RAMELTEON 8 MG TAB (ROZEREM) PO SCH (22:39)
[2022-05-14] MEDS: traZODone 25MG PER 1/2 TABLET PO SCH (22:40)
[2022-05-15 05:53] VITALS: BP 132/82
[2022-05-15] MEDS: REMEDY PHYTOPLEX Z-GUARD PASTE 113GM TUBE (FROM STOREROOM PRODUCT) TOP SCH ×3 (09:00→21:28)
[2022-05-15] MEDS: HEPARIN SOD (PORCINE) 5000UNITS/ML 1ML VIAL/SYRINGE SC SCH ×2 (09:01→21:27)
[2022-05-15] MEDS: amLODIPine 5 MG TAB PO SCH (09:02)
[2022-05-15] MEDS: DOCUSATE SODIUM 100MG CAPSULE PO SCH ×2 (09:02→21:27)
[2022-05-15] MEDS: FLUoxetine 20MG CAP PO SCH (09:02)
[2022-05-15] MEDS: METOPROLOL SUCC (TopROL XL) 50MG **XL** TAB PO SCH (09:02)
[2022-05-15] MEDS: LOSARTAN 25 MG TAB PO SCH (09:02)
[2022-05-15] MEDS: PANTOPRAZOLE 40MG TAB (PROTONIX) PO SCH (09:02)
[2022-05-15] MEDS: ASPIRIN ENTERIC 325 MG TAB PO SCH (09:03)
[2022-05-15] MEDS: **hydrALAZINE HCL** 25 MG TAB PO SCH ×4 (09:03→21:00)
[2022-05-15 14:00] VITALS: BP 111/70
[2022-05-15 19:50] VITALS: BP 122/66
[2022-05-15] MEDS: ATORVASTATIN 20 MG TAB PO SCH (21:27)
[2022-05-15] MEDS: SENNA 8.6 MG TAB (SENOKOT) PO SCH (21:27)
[2022-05-15] MEDS: traZODone 25MG PER 1/2 TABLET PO SCH (22:37)
[2022-05-15] MEDS: RAMELTEON 8 MG TAB (ROZEREM) PO SCH (22:37)
[2022-05-16 06:19] VITALS: BP 130/82
[2022-05-16] MEDS: PANTOPRAZOLE 40MG TAB (PROTONIX) PO SCH (08:45)
[2022-05-16] MEDS: DOCUSATE SODIUM 100MG CAPSULE PO SCH ×2 (08:45→21:33)
[2022-05-16] MEDS: FLUoxetine 20MG CAP PO SCH (08:45)
[2022-05-16] MEDS: ASPIRIN ENTERIC 325 MG TAB PO SCH (08:45)
[2022-05-16] MEDS: amLODIPine 5 MG TAB PO SCH (08:46)
[2022-05-16] MEDS: **hydrALAZINE HCL** 25 MG TAB PO SCH ×4 (08:46→21:00)
[2022-05-16] MEDS: REMEDY PHYTOPLEX Z-GUARD PASTE 113GM TUBE (FROM STOREROOM PRODUCT) TOP SCH ×3 (08:47→21:34)
[2022-05-16] MEDS: HEPARIN SOD (PORCINE) 5000UNITS/ML 1ML VIAL/SYRINGE SC SCH ×2 (08:47→21:32)
[2022-05-16] MEDS: LOSARTAN 25 MG TAB PO SCH (08:47)
[2022-05-16] MEDS: METOPROLOL SUCC (TopROL XL) 50MG **XL** TAB PO SCH (08:47)
[2022-05-16 14:00] VITALS: BP 123/69
[2022-05-16 20:19] VITALS: BP 123/71
[2022-05-16] MEDS: ATORVASTATIN 20 MG TAB PO SCH (21:33)
[2022-05-16] MEDS: SENNA 8.6 MG TAB (SENOKOT) PO SCH (21:33)
[2022-05-16] MEDS: RAMELTEON 8 MG TAB (ROZEREM) PO SCH (22:43)
[2022-05-16] MEDS: traZODone 25MG PER 1/2 TABLET PO SCH (22:43)
[2022-05-17 05:53] VITALS: BP 132/74
[2022-05-17] MEDS: PANTOPRAZOLE 40MG TAB (PROTONIX) PO SCH (08:52)
[2022-05-17] MEDS: FLUoxetine 20MG CAP PO SCH (08:52)
[2022-05-17] MEDS: DOCUSATE SODIUM 100MG CAPSULE PO SCH (08:52)
[2022-05-17] MEDS: HEPARIN SOD (PORCINE) 5000UNITS/ML 1ML VIAL/SYRINGE SC SCH (08:52)
[2022-05-17 08:53] VITALS: BP 132/74
[2022-05-17] MEDS: METOPROLOL SUCC (TopROL XL) 50MG **XL** TAB PO SCH (08:53)
[2022-05-17] MEDS: amLODIPine 5 MG TAB PO SCH (08:53)
[2022-05-17] MEDS: LOSARTAN 25 MG TAB PO SCH (08:53)
[2022-05-17] MEDS: ASPIRIN ENTERIC 325 MG TAB PO SCH (08:53)
[2022-05-17] MEDS: REMEDY PHYTOPLEX Z-GUARD PASTE 113GM TUBE (FROM STOREROOM PRODUCT) TOP SCH (08:54)
[2022-05-17] MEDS: **hydrALAZINE HCL** 25 MG TAB PO SCH (08:54)
== END 2022-05-17 12:50 | disposition home or self-care (01) | DRG 57 ==
LOC: M PM&R 17:40
PROVIDERS: ADMIT Physical Medicine & Rehabilitation; ATTEND Physical Medicine & Rehabilitation
DX: I69.351 Hemiplegia and hemiparesis following cerebral infarction affecting right dominant side (principal); I10 Essential (primary) hypertension; E78.5 Hyperlipidemia, unspecified; I25.10 Atherosclerotic heart disease of native coronary artery without angina pectoris; Z95.5 Presence of coronary angioplasty implant and graft; Z74.09 Other reduced mobility; Z74.1 Need for assistance with personal care; I69.318 Other symptoms and signs involving cognitive functions following cerebral infarction; I69.393 Ataxia following cerebral infarction; I69.398 Other sequelae of cerebral infarction; R42 Dizziness and giddiness; H53.461 Homonymous bilateral field defects, right side; Z86.16 Personal history of COVID-19; G47.00 Insomnia, unspecified; Z79.82 Long term (current) use of aspirin; Z79.899 Other long term (current) drug therapy; Z88.0 Allergy status to penicillin; G62.9 Polyneuropathy, unspecified

== ENCOUNTER → 2023-07-12 | Outpatient (CLI) | payer MEDICARE, OTHER ==
[~2023-07-12] MED LIST changes: +ACET-910 PO; +AMLO1TAB24 PO; +ASPI-428 PO; +ASPI32ECTA PO; +ATOR40TA75 PO; +BISA10SU27 PR; +FLUO20CA22 PO; +GABA-282 PO; +HYDR25TA PO; +LOSA-527 PO; +LOSA50TA28 PO; +LOVE1INJ SC; +MELA3TAB30 PO; +METO1TAB7 PO; +MIRA3350 PO; +ONDA4INJ4 IV; +PANT40TA29 PO; +SENN-52 PO; +TRAZ-252 PO
== END ==
LOC: M SOG 07:55
PROVIDERS: ATTEND Physician Assistant
DX: M25.521 Pain in right elbow (principal)

== ENCOUNTER → 2023-08-11 | Outpatient (CLI) | payer MEDICARE, OTHER | LOC: M SOG 07:51 | PROVIDERS: ATTEND Orthopaedic Surgery | DX: M54.2 Cervicalgia (principal); M43.12 Spondylolisthesis, cervical region; M47.812 Spondylosis without myelopathy or radiculopathy, cervical region ==

== ENCOUNTER → 2024-08-09 | Outpatient (CLI) | payer MEDICARE, OTHER ==
[~2024-08-09] MED LIST changes: +FLUO-365 PO; -FLUO20CA22 PO; +GABA-1172 PO; -GABA-282 PO; -HYDR25TA PO; +HYDR25TA88 PO
[2024-08-09 14:12] LABS: BASO # 0.1 10^3/uL (0.0-0.2); BASO % 1.3 % (0.0-1.0); EOS # 0.2 10^3/uL (0.0-0.5); EOS % 2.8 % (0.0-3.0); HEMATOCRIT 45.5 % (42.0-52.0); HEMOGLOBIN 15.2 g/dl (13.5-17.5); LYMPH # 2.4 10^3/uL (1.5-5.0); LYMPH % 30.6 % (24.0-44.0); MEAN CORPUSCULAR HEMOGLOBIN 29.6 pg (27.0-33.0); MEAN CORPUSCULAR HGB CONC 33.4 g/dl (32.0-36.5); MEAN CORPUSCULAR VOLUME 88.7 fl (80.0-96.0); MONO # 0.9 10^3/uL (0.0-0.8); NEUTROPHILS # 4.2 10^3/uL (1.5-8.5); NEUTROPHILS % 53.7 % (36.0-66.0); PLATELET COUNT, AUTOMATED 260 10^3/uL (150-450); RED BLOOD COUNT 5.13 10^6/uL (4.30-6.10); WHITE BLOOD COUNT 7.8 10^3/uL (4.0-10.0)
[2024-08-09 14:34] LABS: ALBUMIN 3.8 G/DL (3.2-5.2); ALKALINE PHOSPHATASE 153 U/L (46-116); ALT/SGPT 25 U/L (7.0-40); AST/SGOT 14 U/L (<34); BILIRUBIN,TOTAL 0.8 MG/DL (0.3-1.2); BLOOD UREA NITROGEN 10 MG/DL (9-23); CALCIUM LEVEL 9.7 MG/DL (8.3-10.6); CARBON DIOXIDE LEVEL 28 MMOL/L (20-31); CHLORIDE LEVEL 107 MMOL/L (98-107); CHOLESTEROL LEVEL 141 MG/DL (<200); CHOLESTEROL RISK RATIO 2.46 (<5); CREATININE FOR GFR 0.96 MG/DL (0.70-1.30); GLOMERULAR FILTRATION RATE > 60.0 (>42); GLUCOSE, FASTING 83 MG/DL (74-106); HDL CHOLESTEROL 57.3 MG/DL (>40); LDL CHOLESTEROL 64.1 MG/DL (<100); NON-HDL-C 83.7 MG/DL; POTASSIUM SERUM 4.4 MMOL/L (3.5-5.1); SODIUM LEVEL 140 MMOL/L (136-145); TOTAL PROTEIN 6.8 G/DL (5.7-8.2); TRIGLYCERIDES LEVEL 98 MG/DL (<150)
[2024-08-09 14:37] LABS: FREE THYROXINE INDEX 2.6 % (1.4-3.8); T UPTAKE 34.8 % (22.5-37.0); THYROID STIMULATING HORMONE 1.763 uIU/ML (0.55-4.78); THYROXINE (T4) 7.5 UG/DL (4.5-10.9)
[2024-08-09 14:38] LABS: FOLATE 10.1 NG/ML (>5.4); VITAMIN B12 LEVEL 283 PG/ML (211-911)
[2024-08-09 16:01] LABS: HEMOGLOBIN A1c 5.1 % (4.0-6.0)
[2024-08-14 18:37] LABS: VITAMIN E(GAMMA TOCOPHEROL) < 1.0 mg/L (<=4.3)
== END ==
LOC: M PLALAB 09:51
PROVIDERS: ATTEND Psychiatry & Neurology Neurology
DX: E11.9 Type 2 diabetes mellitus without complications (principal); E07.9 Disorder of thyroid, unspecified; E78.5 Hyperlipidemia, unspecified; E53.8 Deficiency of other specified B group vitamins; Z86.73 Personal history of transient ischemic attack (TIA), and cerebral infarction without residual deficits

== ENCOUNTER → 2025-01-08 | Outpatient (CLI) | payer MEDICARE, OTHER ==
[~2025-01-08] MED LIST changes: +PROHANCE 279.3MG/ML 15ML VIAL ONE
== END ==
LOC: M PLAIMG 10:31
PROVIDERS: ATTEND Specialist
DX: C61 Malignant neoplasm of prostate (principal); K40.20 Bilateral inguinal hernia, without obstruction or gangrene, not specified as recurrent; N40.0 Benign prostatic hyperplasia without lower urinary tract symptoms
CPT/HCPCS: 72197; A9576

== ENCOUNTER → 2025-07-09 | Outpatient (CLI) | payer MEDICARE, OTHER ==
[~2025-07-09] MED LIST changes: -PROHANCE 279.3MG/ML 15ML VIAL ONE
[2025-07-09 16:07] LABS: VITAMIN B12 LEVEL 376 PG/ML (211-911)
== END ==
LOC: M PLALAB 14:13
PROVIDERS: ATTEND Psychiatry & Neurology Neurology
DX: E53.8 Deficiency of other specified B group vitamins (principal)